=== PATIENT | female | born 1985 | race Caucasian/White ===

== ENCOUNTER 2022-09-17 13:29 | Emergency (ER) | payer OTHER, SELFPAY ==
[2022-09-17 13:39] VITALS: BP 124/69; PULSE 76; RESP 16; TEMP 37.1; O2SAT 99
--- NOTE | 2022-09-17 13:41 | ED.GENADULT ---
HPI - General Adult General Chief complaint: Animal Bite Stated complaint: cat bite Time Seen by Provider: 09/17/22 13:41 Source: patient, RN notes reviewed and old records reviewed Mode of arrival: ambulatory Limitations: no limitations History of Present Illness HPI narrative: 36-year-old female presents to the [facility] of the [facility] with complaints of a cat bite to her right thumb. States that she is watching her friend's cat when it bit her last night. Swelling noted. Had some clear to yellow discharge that was not thick this morning. Tenderness to the distal aspect of the right thumb, pad. Onset (ago): day(s) (1) Related Data Home Medications Medication Instructions Recorded Confirmed buspirone 5 mg tablet 5 mg PO DIRECTED 09/17/22 09/17/22 levothyroxine 50 mcg tablet 50 mcg PO DAILY 09/17/22 09/17/22 norethindrone (contraceptive) 0.35 0.35 mg PO DAILY 09/17/22 09/17/22 mg tablet vortioxetine 5 mg tablet 5 mg PO DAILY 09/17/22 09/17/22 (Trintellix) Allergies Allergy/AdvReac Type Severity Reaction Status Date / Time amoxicillin Allergy Other Verified 09/17/22 13:48 Review of Systems Review of Systems: All systems reviewed & are unremarkable except as noted in HPI and below Constitutional: Constitutional: Reports no additional constitutional complaints Eyes: Eyes: Reports no additional eye complaints ENT: Reports system reviewed and no additional complaints, except as documented Cardiovascular: Cardiovascular: Reports no additional cardiovascular complaints, Denies chest pain and Denies dyspnea Respiratory: Respiratory: Reports no additional respiratory complaints, Denies chest congestion, Denies cough and Denies dyspnea Gastrointestinal: Gastrointestinal: Reports no additional gastrointestinal complaints, Denies abdominal pain, Denies nausea and Denies vomiting Musculoskeletal: Musculoskeletal: Reports no additional musculoskeletal complaints Integumentary/Breasts: Skin/Breast: Reports as per HPI Neurologic: Reports system reviewed and no additional complaints, except as documented Psychiatric: Psychiatric: Reports no additional psychiatric complaints Allergic/Immunologic: Allergic/Immunologic: Reports no additional allergic/immunologic complaints PMFSH Comments At the time of my signature, I reviewed and agree with the nursing past medical, surgical, social, and family history. There is no relevant family history pertinent to the patient complaint. Exam Const: General: cooperative, healthy appearing, comfortable, no acute distress, well developed, alert and well nourished Nutritional Appearance: well nourished Orientation/consciousness: patient oriented x3 Limitations: no limitations HENMT: Head: normal to inspection Ears: hearing grossly normal bilaterally and external ears normal Face/Nose/Sinus: Normal external nose present, Normal nares present, Normal nasal mucous membranes and turbinates present and normal facial exam Face and sinus: normal facial exam Mouth: Yes Normal oral and palatal mucosa present, Yes lip normal and Yes moist mucous membranes Eyes: General: appearance normal, both eyes and all related structures Alignment and Position: alignment normal Periorbital: periorbital findings normal Conjunctivae: conjunctivae normal Pupils: Equal, round and reactive pupils present EOM: EOMs intact bilaterally Neck: Neck: normal visual inspection, full ROM, no lymphadenopathy and no meningeal signs Chest: Chest palpation & inspection: normal inspection of the chest Resp: Effort & Inspection: normal respiratory effort and able to speak in complete sentences Cardio: Rate: regular rate Rhythm: regular rhythm Back/Spine/Pelvis: Cervical Spine: cervical ROM normal Thoracic/Lumbar Spine: No thoracic spinal tenderness Skin: General skin exam: normal color and no rashes or lesions noted Lesions: no lesions Rashes: no rashes Other: Puncture wound right thumb, swelling Neuro: General: p
[2022-09-17] MEDS: TETANUS,DIPHTHERIA,AC PERTUSSIS ADULT (0.5 ML) BOOSTRIX IM (13:59)
== END 2022-09-17 14:12 | disposition home or self-care (01) ==
PROVIDERS: Emergency Provider Nurse Practitioner
DX: S61.031A Puncture wound without foreign body of right thumb without damage to nail, initial encounter (principal); W55.01XA Bitten by cat, initial encounter; Z23 Encounter for immunization; E03.9 Hypothyroidism, unspecified; F41.9 Anxiety disorder, unspecified; F32.A Depression, unspecified
CPT/HCPCS: 90471; 90715; 99213; G0463

== ENCOUNTER 2022-10-30 17:17 | Emergency (ER) | payer OTHER, SELFPAY ==
--- NOTE | 2022-10-30 17:19 | ED.FEMALEGU ---
HPI - Female Genitourinary General Chief complaint: Urogenital-Female Stated complaint: UTI Time Seen by Provider: 10/30/22 17:18 Source: patient Mode of arrival: ambulatory Limitations: no limitations History of Present Illness HPI Narrative: Kamla is a 36-year-old female patient presenting to the clinic today with complaints of possible urinary tract infection. She reports over the weekend she started having some urinary frequency and urinary discomfort. States no known fever or chills. Today she developed some right-sided abdominal discomfort and low back pain. Denies any nausea or vomiting. Denies any history of gallbladder issues. History of ovarian cyst. Related Data Home Medications Medication Instructions Recorded Confirmed buspirone 5 mg tablet 5 mg PO DIRECTED 09/17/22 09/17/22 levothyroxine 50 mcg tablet 50 mcg PO DAILY 09/17/22 09/17/22 vortioxetine 5 mg tablet 5 mg PO DAILY 09/17/22 09/17/22 (Trintellix) cyanocobalamin (vitamin B-12) 50 50 mcg PO DAILY 10/30/22 10/30/22 mcg tablet semaglutide (weight loss) 0.25 mg subcut 10/30/22 10/30/22 mg/0.5 mL subcutaneous pen injector (Wegovy) Allergies Allergy/AdvReac Type Severity Reaction Status Date / Time amoxicillin Allergy Other Verified 10/30/22 17:29 Review of Systems Review of Systems: Pertinent positives per HPI. Patient denies any fever, chills, rash, headache, visual changes, dizziness, cough, runny nose, sore throat, shortness of breath, chest pain, palpitations, nausea, vomiting, diarrhea, constipation. PMFSH Comments At the time of my signature, I reviewed and agree with the nursing past medical, surgical, social, and family history. There is no relevant family history pertinent to the patient complaint. Exam Narrative: General: Well-developed, well nourished, in no apparent distress. Head: Normocephalic, atraumatic. Cardio: Regular rate and rhythm, s1 and s2 normal, no murmur appreciated. Resp: Clear to auscultation bilaterally, no rhonchi, rales, wheezing or rubs. Abdomen: Soft, pliable, bowel sounds present in all quadrants, mild tender to palpation over the suprapubic bladder, no organomegly, no CVAT tenderness. Course Course Emergency Course: Portions of this record may have been created with voice recognition software. Level of Care: Express Care Visit Vital Signs Vital signs: Vital signs reviewed MDM - Female Genitourinary MDM Narrative Medical decision making narrative: At the time of the patient is resting comfortably on the exam table. UA was obtained and shows trace of leukocyte and trace of blood. Will send for culture. Will place the patient on Macrobid. Supportive measures were discussed with the patient she voiced understanding discharge instructions agrees to treatment plan. Differential Diagnosis Differential diagnosis: Likely urinary tract infection and cystitis Discharge Plan Discharge Clinical Impression: Urinary tract infection Qualifiers: Urinary tract infection type: acute cystitis Hematuria presence: with hematuria Qualified Code(s): N30.01 - Acute cystitis with hematuria Patient Disposition: Home, Self-Care Condition: Stable Instructions: Antibiotic Form, Urinary Tract Infection in Women (ED) Additional Instructions: Urine positive for trace of leuko sites and trace of blood. Will send urine for culture Take Macrobid as prescribed Increase fluids and stay well hydrated Wipe front to back. May use wet wipes. Avoid tub baths If sexually active- pee before and after intercourse. Wear cotton panties Avoid tight clothing up against the genitals Follow up with your PCP in 1 week if symptoms persist. Prescriptions: New nitrofurantoin monohyd/m-cryst [Macrobid] 100 mg capsule 100 mg PO Q12H 5 Days Qty: 10 0RF Rx Instructions: must administer with a meal/food No Action buspirone 5 mg tablet 5 mg PO DIRECTED levothyroxine
[2022-10-30 17:23] VITALS: BP 128/68; PULSE 78; RESP 16; TEMP 36.5; O2SAT 100
== END 2022-10-30 17:40 | disposition home or self-care (01) ==
PROVIDERS: Emergency Provider Nurse Practitioner Family; PCP Nurse Practitioner Family
DX: N30.01 Acute cystitis with hematuria (principal); E03.9 Hypothyroidism, unspecified; F41.9 Anxiety disorder, unspecified; F32.A Depression, unspecified
CPT/HCPCS: 81003; 87086; 99213; G0463

== ENCOUNTER 2023-04-21 09:15 | Emergency (ER) | payer OTHER, SELFPAY ==
--- NOTE | 2023-04-21 09:17 | ED.SKABFB ---
HPI - Skin/Abscess/Foreign Bdy General Chief complaint: Skin/Abscess/Foreign Body Stated complaint: Wound On Right Wrist Time Seen by Provider: 04/21/23 09:17 Source: patient Mode of arrival: ambulatory Limitations: no limitations History of Present Illness HPI narrative: Patient is a 37-year-old female who presents with infected tattoo to right wrist. States she has been cleaning it and putting Aquaphor on. States this morning it looked goopy . Denies A's any surrounding redness, pain or itching. Denies any fever, chills, nausea, vomiting, diarrhea. Related Data Home Medications Medication Instructions Recorded Confirmed buspirone 5 mg tablet 5 mg PO DIRECTED 09/17/22 09/17/22 vortioxetine 5 mg tablet 5 mg PO DAILY 09/17/22 09/17/22 (Trintellix) cyanocobalamin (vitamin B-12) 50 50 mcg PO DAILY 10/30/22 10/30/22 mcg tablet semaglutide (weight loss) 0.25 mg subcut 10/30/22 10/30/22 mg/0.5 mL subcutaneous pen injector (Wegovy) [place] Thyroid 1 tab-cap PO DIRECTED 04/21/23 04/21/23 Allergies Allergy/AdvReac Type Severity Reaction Status Date / Time amoxicillin Allergy Other Verified 04/21/23 09:57 Review of Systems Review of Systems: All systems reviewed & are unremarkable except as noted in HPI and below Constitutional: Constitutional: Denies body ache(s), Denies chills, Denies fatigue, Denies fever(s), Denies headache(s), Denies malaise and Denies weakness Eyes: Eyes: Denies blurry vision, Denies irritation and Denies loss of vision ENT: Denies otalgia, Denies headache(s), Denies nasal discharge, Denies sinus pain and Denies sore throat Cardiovascular: Cardiovascular: Denies chest pain, Denies irregular heart rhythm and Denies dyspnea Respiratory: Respiratory: Denies dyspnea Gastrointestinal: Gastrointestinal: Denies abdominal pain, Denies melena, Denies hematochezia, Denies diarrhea, Denies nausea and Denies vomiting Musculoskeletal: Musculoskeletal: Denies back pain, Denies myalgias and Denies arthralgias Integumentary/Breasts: Skin/Breast: Denies pruritus, Denies rash and Reports wounds Neurologic: Denies headache(s), Denies loss of vision and Denies weakness Psychiatric: Psychiatric: Reports no additional psychiatric complaints Endocrine: Endocrine: Denies fatigue PMFSH Comments At time of signature, agree with nursing past medical, surgical, social and family history. There is no relevant family history pertinent to the presenting complaint. Exam Const: General: cooperative, healthy appearing, comfortable, no acute distress and well nourished Nutritional Appearance: well nourished Orientation/consciousness: patient oriented x3 Limitations: no limitations HENMT: Head: normal to inspection, normocephalic and atraumatic Ears: hearing grossly normal bilaterally and external ears normal Face/Nose/Sinus: Normal external nose present, normal facial exam and face symmetric Face and sinus: normal facial exam and face symmetric Mouth: Yes lip normal Eyes: General: appearance normal, both eyes and all related structures Alignment and Position: alignment normal and position normal Periorbital: periorbital findings normal Eyelids: eyelids normal Pupils: Equal, round and reactive pupils present EOM: EOMs intact bilaterally Neck: Neck: normal visual inspection, full ROM and supple Chest: Chest palpation & inspection: normal inspection of the chest Resp: Effort & Inspection: normal respiratory effort and able to speak in complete sentences Auscultation: clear to auscultation bilaterally Cardio: Rate: regular rate Rhythm: regular rhythm Heart sounds: S1 normal heart sound present and S2 normal heart sound present GI: Inspection: normal to inspection Skin: General skin exam: normal color and no rashes or lesions noted Wounds: wounds noted right volar wrist size (in tattoo), bed yellow, drainage yellow (minor) and margins well defined; without any surrounding erythema Neuro: Gene
[2023-04-21 09:29] VITALS: BP 127/78; PULSE 87; RESP 16; TEMP 36.8; O2SAT 100
== END 2023-04-21 10:16 | disposition home or self-care (01) ==
PROVIDERS: Emergency Provider Nurse Practitioner Family; PCP Nurse Practitioner Family
DX: L03.113 Cellulitis of right upper limb (principal); E03.9 Hypothyroidism, unspecified
CPT/HCPCS: 99213; G0463

== ENCOUNTER 2025-02-23 14:24 | Emergency (ER) | payer OTHER, SELFPAY ==
[2025-02-23 15:30] VITALS: BP 143/78; PULSE 77; RESP 18; TEMP 36.6; O2SAT 99
--- NOTE | 2025-02-23 15:39 | ED.FEMALEGU ---
HPI - Female Genitourinary General Chief complaint: Urogenital-Female Stated complaint: uti Time Seen by Provider: 02/23/25 15:39 Source: patient Mode of arrival: ambulatory Limitations: no limitations History of Present Illness HPI Narrative: 39-year-old female presents with complaint of urinary frequency, urgency, decreased in output For 1 week. Suprapubic cramping. No vaginal complaints. No concern for STI. Last period was about a month ago. Patient states periods are irregular. Patient cannot rule out . Afebrile. All systems reviewed and negative except as noted above. Related Data Home Medications ?Medication ?Instructions ?Recorded ?Confirmed ?Last Taken ?Type buspirone 5 mg tablet 5 mg PO DIRECTED 09/17/22 09/17/22 Unknown History vortioxetine 5 mg tablet 5 mg PO DAILY 09/17/22 09/17/22 Unknown History (Trintellix) cyanocobalamin (vitamin B-12) 50 50 mcg PO DAILY 10/30/22 10/30/22 Unknown History mcg tablet semaglutide (weight loss) 0.25 mg subcut 10/30/22 10/30/22 Unknown History mg/0.5 mL subcutaneous pen injector (Wegovy) [place] Thyroid 1 tab-cap PO DIRECTED 04/21/23 04/21/23 Unknown History Allergies Allergy/AdvReac Type Severity Reaction Status Date / Time amoxicillin Allergy Other Verified 04/21/23 09:57 PMFSH Comments At time of signature, agree with nursing past medical, surgical, social and family history. There is no relevant family history pertinent to the presenting complaint. Exam Narrative: GENERAL: This is a well-nourished, well-developed patient, in no apparent distress. HEAD: normocephalic, atraumatic. EYES: PERRL. Sclera clear/white. Vision is grossly intact. EARS: External ears normal NOSE: External nose normal NECK: Neck supple, non-tender without lymphadenopathy, masses or thyromegaly. CARDIOVASCULAR: Regular rate and rhythm without murmurs, gallops, or rubs. RESPIRATORY: Clear to auscultation. Breath sounds equal bilaterally. No wheezes, rales, or rhonchi. SKIN: warm, Dry, intact with no suspicious lesions or rash, good texture and turgor. NEURO: awake, alert, and oriented to person, place and time. There were no obvious focal neurologic abnormalities. EXTREMITIES: No joint tenderness, effusion, or edema noted. Course Course Level of Care: Express Care Visit Vital Signs Vital signs: Vital Signs Temperature 36.6 C 02/23/25 15:30 Pulse Rate 77 02/23/25 15:30 Respiratory Rate 18 02/23/25 15:30 Blood Pressure 143/78 H 02/23/25 15:30 Pulse Oximetry 99 02/23/25 15:30 Oxygen Delivery Room Air 02/23/25 15:30 Temperature 36.6 C 02/23/25 15:30 Pulse Rate 77 02/23/25 15:30 Respiratory Rate 18 02/23/25 15:30 Blood Pressure 143/78 H 02/23/25 15:30 Pulse Oximetry 99 02/23/25 15:30 Oxygen Delivery Room Air 02/23/25 15:30 Reviewed MDM - Female Genitourinary MDM Narrative Medical decision making narrative: trace blood to urinalysis. Urine culture ordered. Will give patient antibiotic due to urinary symptoms. test is negative. Differential Diagnosis Differential diagnosis: Likely urinary tract infection Lab Data Labs: Lab Results 02/23/25 02/23/25 Range/Units 15:32 15:49 POC Urine Color Dark POC Urine Clarity Clear POC Urine pH 5.5 POC Ur Specif [place] 1.030 POC Urine Protein Negative (Negative) POC Ur Glucose (UA) Negative (Negative) POC Urine Ketones Negative (Negative) POC Urine Blood Trace (Negative) POC Urine Nitrite Negative (Negative) POC Urine Bilirubin Negative (Negative) POC Urine Urobilinogen 0.2 POC U Leukocyte Esteras Negative (Negative) POC Urine HCG, Qual Negative (Negative) Discharge Plan Discharge Clinical Impression: Urinary frequency Patient Disposition: Home Condition: Stable Instructions: Dysuria (ED) Additional Instructions: Take antibiotic as prescribed until gone. Drink at least 64 ounces of water a day. See your doctor if symptoms not improving. Patient Language: Georgian Prescriptions: New sulfamethoxazole-trimethoprim [Bactrim DS] 800-160 mg tablet 1 tablet PO Q12H 3 Days Qty: 6 0RF No Action [place] Thyroid 1 tab-cap PO DIRECTED doxycycline monohydrate 100 mg tablet 100 mg PO BID 7 Days Qty: 14 0RF buspirone 5 mg tablet 5 mg PO DIRECTED Trintellix 5 mg tablet 5 mg PO DAILY cyanocobalamin (vitamin B-12) 50 mcg Tablet 50 mcg PO DAILY Wegovy 0.25 mg/0.5 mL pen injector SUBCUT nitrofurantoin monohyd/m-cryst [Macrobid] 100 mg capsule 100 mg PO Q12H 5 Days Qty: 10 0RF Rx Instructions: must administer with a meal/food Follow-up/Referrals: Meghann,Neris De La Cruz APRN [Primary Care Provider] Time of Disposition: 15:53
[2025-02-23 15:49] LABS: EDUAAPPEAR Clear; EDUABILI Negative (Negative); EDUABLOOD Trace (Negative); EDUACOLOR1 Dark; EDUAGLUCOSE Negative (Negative); EDUAKETONE Negative (Negative); EDUALEUKO Negative (Negative); EDUANITRATE Negative (Negative); EDUAPH 5.5; EDUAPROTEIN Negative (Negative); EDUASPGRAVITY 1.030; EDUAUROBILI 0.2
[2025-02-23 15:50] LABS: BEDSIDEPREGUCG Negative (Negative)
== END 2025-02-23 16:00 | disposition home or self-care (01) ==
PROVIDERS: Emergency Provider Nurse Practitioner Family; PCP Nurse Practitioner Family
DX: R35.0 Frequency of micturition (principal); E03.9 Hypothyroidism, unspecified; F41.9 Anxiety disorder, unspecified; F32.A Depression, unspecified
CPT/HCPCS: 81003; 81025; 87086; 99213; G0463